=== PATIENT | female | born 1950 | race Caucasian/White ===

== ENCOUNTER 2018-12-26 19:46 | Emergency (ER) | payer MEDICARE, BC ==
[2018-12-26 20:07] VITALS: BP 150/78
[2018-12-26] MEDS ORDERED: HYDROcodone/ACETAMIN 5-325 MG* 1 TAB PO ONE (21:02)
--- NOTE | 2018-12-26 21:46 | UC ---
Shoulder Pain HPI - HPI Summary HPI Summary: PATIENT SLIPPED AND FELL IN THE TUB THIS EVENING LANDING ON HER RIGHT SHOULDER. IS UNABLE TO MOVE HER ARM AT THE SHOULDER. DENIES ANY NUMBNESS OR TINGLING IN HER HAND OR FINGERS. - History of Current Complaint Chief Complaint: UCUpperExtremity Stated Complaint: R SHOULDER INJURY Time Seen by Provider: 12/26/18 20:50 Hx Obtained From: Patient Hx Last Menstrual Period: post Onset/Duration: Sudden Onset, Lasting Hours, Still Present Timing: Constant Severity Initially: Moderate Severity Currently: Moderate Location Of Pain: Is Discrete @ - RIGHT SHOULDER Pain Intensity: 8 Pain Scale Used: 0-10 Numeric Character: Sharp Aggravating Factor(s): Movement Alleviating Factor(s): Rest Associated Signs And Symptoms: Negative: Numbness/Tingling Related History: Dominant Hand Left - Allergies/Home Medications Allergies/Adverse Reactions: Allergies Allergy/AdvReac Type Severity Reaction Status Date / Time MS Tetracyclines Allergy Severe Vomiting Verified 01/13/15 18:10 [Tetracyclines] tetracycline Allergy Severe Vomiting Verified 12/26/18 20:08 Home Medications: Home Medications Atorvastatin* [Lipitor 80 MG*] 1 tab PO BEDTIME 12/26/18 [History Confirmed ] Lisinopril/HCTZ 10/12.5(NF) [Zestoretic 10/12.5(NF)] 1 tab PO DAILY 12/26/18 [ History Confirmed 12/26/18] PMH/Surg Hx/FS Hx/Imm Hx Cardiovascular History: Cardiac Disease, Hypertension - Surgical History Surgical History: Yes Surgery Procedure, Year, and Place: , appendectomy, laminectomy 2007, cholecystectomy, HYSTERECTOMY W/FALLOPIAN TUBES & OVARIES - Family History Known Family History: Positive: Non-Contributory - Social History Alcohol Use: Weekly Substance Use Type: None Smoking Status (MU): Former Smoker Review of Systems All Other Systems Reviewed And Are Negative: Yes Constitutional: Positive: Negative Skin: Positive: Negative Respiratory: Positive: Negative Cardiovascular: Positive: Negative Gastrointestinal: Positive: Negative Musculoskeletal: Positive: Arthralgia, Decreased ROM Physical Exam Triage Information Reviewed: Yes Appearance: Well-Nourished, Pain Distress Vital Signs: Initial Vital Signs Temp 98 F 12/26/18 20:00 Pulse 90 12/26/18 20:00 Resp 17 12/26/18 20:00 BP 150/78 12/26/18 20:00 Pulse Ox 99 12/26/18 20:00 Vital Signs Reviewed: Yes Eyes: Positive: Conjunctiva Clear ENT: Positive: Hearing grossly normal Neck: Positive: Supple Respiratory: Positive: No respiratory distress, No accessory muscle use Cardiovascular: Positive: Pulses Normal, Brisk Capillary Refill Abdomen Description: Positive: Soft Musculoskeletal: Positive: No Edema, ROM Limited @ - RIGHT SHOULDER, Other: - TTP RIGHT SHOULDER AND PROXIMAL HUMERUS Neurological: Positive: Alert Psychological: Positive: Age Appropriate Behavior Skin: Negative: Rashes Diagnostics - Radiology RIGHT SHOULDER XRAY Radiology Interpretation Completed By: ED Physician Summary of Radiographic Findings: SLIGHTLY ANGULATED FRACTURE SURGICAL NECK OF HUMERUS RIGHT HUMERUS XRAY Radiology Interpretation Completed By: ED Physician Summary of Radiographic Findings: SLIGHTLY ANGULATED FRACTURE SURGICAL NECK OF HUMERUS Shoulder Course/Dx - Course Course Of Treatment: X-RAY SHOWS FRACTURE THROUGH THE SURGICAL NECK OF THE RIGHT HUMERUS WITH SLIGHT ANGULATION ON MY INITIAL INTERPRETATION. OFFICIAL RADIOLOGY READ PENDING. SHOULDER IMMOBILIZER APPLIED BY RN. ADVISED IBUPROFEN FOR DISCOMFORT AND HYDROCODONE FOR BREAKTHROUGH. PATIENT WILL CALL ORTHOPEDICS FIRST THING TOMORROW MORNING FOR A FOLLOW-UP APPOINTMENT. - Differential Dx/Diagnosis Provider Diagnosis: Proximal humeral fracture Discharge - Sign-Out/Discharge Documenting (check all that apply): Patient Departure All imaging exams completed and their final reports reviewed: No - Discharge Plan Condition: Stable Disposition: HOME Prescriptions: HYDROcodone/ACETAMIN 5-325 MG* [[place] 5-325 TAB*] 1 tab PO Q6H PRN #15 tab MDD 4 PRN Reason: Pain Patient Education Materials: Proximal Humerus Fracture (ED) Referrals: Grant Greco MD [Medical Doctor] - 1 Day Stephany Rasmussen MD [Primary Care Provider] - If Needed Additional Instructions: X-RAY TODAY SHOWS A MILDLY DISPLACED FRACTURE THROUGH THE NECK OF YOUR RIGHT HUMERUS ON MY INITIAL INTERPRETATION. OFFICIAL RADIOLOGY READ IS PENDING. WEAR THE SHOULDER IMMOBILIZER UNTIL SEEN BY ORTHOPEDICS. CALL ORTHOPEDICS FIRST THING TOMORROW MORNING FOR FOLLOW-UP APPOINTMENT. IBUPROFEN NEEDED FOR DISCOMFORT. HYDROCODONE FOR BREAKTHROUGH. APPLY ICE. - Billing Disposition and Condition Condition: STABLE Disposition: Home
--- NOTE | 2018-12-27 08:01 | UC ---
- Progress Note Progress Note: Review of final x-ray report. FINDINGS: There is a transverse slightly comminuted fracture of the surgical neck of the humerus. The distal shaft of the humerus is displaced medial approximately 2 cortical diameters relative to the proximal humerus and the fracture fragments are slightly impacted. IMPRESSION: SLIGHTLY DISPLACED FRACTURE OF THE SURGICAL NECK OF THE HUMERUS. Consistent with wet read by provider. No change in plan of care. Course/Dx - Diagnoses Provider Diagnoses: Proximal humeral fracture Discharge - Sign-Out/Discharge Documenting (check all that apply): Post-Discharge Follow Up All imaging exams completed and their final reports reviewed: Yes - Discharge Plan Condition: Stable Disposition: HOME Prescriptions: HYDROcodone/ACETAMIN 5-325 MG* [[place] 5-325 TAB*] 1 tab PO Q6H PRN #15 tab MDD 4 PRN Reason: Pain Patient Education Materials: Proximal Humerus Fracture (ED) Referrals: Grant Greco MD [Medical Doctor] - 1 Day Stephany Rasmussen MD [Primary Care Provider] - If Needed Additional Instructions: X-RAY TODAY SHOWS A MILDLY DISPLACED FRACTURE THROUGH THE NECK OF YOUR RIGHT HUMERUS ON MY INITIAL INTERPRETATION. OFFICIAL RADIOLOGY READ IS PENDING. WEAR THE SHOULDER IMMOBILIZER UNTIL SEEN BY ORTHOPEDICS. CALL ORTHOPEDICS FIRST THING TOMORROW MORNING FOR FOLLOW-UP APPOINTMENT. IBUPROFEN NEEDED FOR DISCOMFORT. HYDROCODONE FOR BREAKTHROUGH. APPLY ICE. - Billing Disposition and Condition Condition: STABLE Disposition: Home
== END 2018-12-26 21:23 | disposition home or self-care (01) ==
LOC: UCEAST 19:46
DX: S42.211A Unspecified displaced fracture of surgical neck of right humerus, initial encounter for closed fracture (principal); W18.2XXA Fall in (into) shower or empty bathtub, initial encounter; Y92.9 Unspecified place or not applicable; I10 Essential (primary) hypertension; Z87.891 Personal history of nicotine dependence
CPT/HCPCS: 99203; G0463